=== PATIENT | female | born 1950 | race Caucasian/White ===

== ENCOUNTER → 2017-06-07 | Outpatient (CLI) | payer OTHER | LOC: BRMIMAGING 15:06 | DX: Z12.31 Encounter for screening mammogram for malignant neoplasm of breast (principal) | CPT/HCPCS: G0202 ==

== ENCOUNTER → 2018-06-08 | Outpatient (CLI) | payer OTHER | LOC: BRMIMAGING 08:07 | DX: Z12.31 Encounter for screening mammogram for malignant neoplasm of breast (principal) ==